=== PATIENT | female | born 1970 | race Caucasian/White ===

== ENCOUNTER 2017-11-11 08:54 | Day surgery (SDC) | payer OTHER ==
[2017-11-11] MEDS ORDERED: LIDOCAINE 4% SOLUTION 50 ML BTL (12:05)
[2017-11-11] MEDS ORDERED: FENTAnyl 50 MCG/ML VIAL (13:04)
[2017-11-11] MEDS ORDERED: MIDAZOLAM 1 MG/ML 2 ML INJ ×3 (13:04)
== END 2017-11-11 16:44 | disposition home or self-care (01) ==
LOC: GIL 08:54
DX: R12 Heartburn (principal); K64.4 Residual hemorrhoidal skin tags; Z86.010 Personal history of colon polyps; K57.90 Diverticulosis of intestine, part unspecified, without perforation or abscess without bleeding
CPT/HCPCS: 43239; 88305; 88312; 88313

== ENCOUNTER 2019-04-03 11:33 | Day surgery (SDC) | payer OTHER ==
[2019-04-03] MEDS ORDERED: PROPOFOL 40 ML (14:04)
== END 2019-04-03 16:02 | disposition home or self-care (01) ==
LOC: GIL 11:33
DX: K21.9 Gastro-esophageal reflux disease without esophagitis (principal); K29.60 Other gastritis without bleeding
CPT/HCPCS: 43239; 88305; 88312